=== PATIENT | female | born 1965 | race Caucasian/White ===

== ENCOUNTER 2021-12-09 08:28 | Emergency (ER) | payer BC, SELFPAY ==
--- NOTE | ~2021-12-09 | XR_ITS ---
EXAMINATION: XR WRIST, LEFT CLINICAL INFORMATION: Status post reduction. COMPARISON: Radiographs of the left wrist done earlier today. TECHNIQUE: PA, lateral, views of the left wrist. Total of 4 images were obtained. FINDINGS: Previously documented fractures involving the distal left radial metaphysis and the ulna are reidentified, shows significant improved alignment both on the frontal as well as on the lateral projection. Mild residual volar angulation persists on the lateral projection on the second post reduction images. XR/XR wrist LT 2V IMPRESSION: Significant improved alignment at the fracture sites of the left breast since the prior prereduction radiographs done earlier today at 8:56 AM.
--- NOTE | ~2021-12-09 | XR_ITS ---
EXAMINATION: XR WRIST, LEFT CLINICAL INFORMATION: History of fall and pain. COMPARISON: None TECHNIQUE: Two views of the left wrist. FINDINGS: Comminuted fractures are present at the distal metaphysis of the left radius and ulna with involvement of ulnar styloid process. Volar angulation of the distal fracture fragment is seen. Significant soft tissue swelling is present. No definite evidence of any fracture line extension to the articular surface. The remainder of the visualized bones are intact. XR/XR wrist LT 2V IMPRESSION: Comminuted transverse distal radial and ulnar fracture without any definite radiographic evidence of fracture line extension to the articular surface .
[2021-12-09 08:31] VITALS: BP 128/59; PULSE 76; RESP 20; TEMP 36.3; O2SAT 99; BMI 20.9
--- NOTE | 2021-12-09 08:46 | ED.EXTPRO ---
HPI - Extremity Problem General Chief complaint: Extremity Problem <KARLO Lin Last Filed: 12/09/21 11:17> Stated complaint: L wrist inj <KARLO Lin Last Filed: 12/09/21 11:17> Time Seen by Provider: 12/09/21 08:46 <KARLO Lin Last Filed: 12/09/21 11:17> Source: patient <KARLO Lin Last Filed: 12/09/21 11:17> Mode of arrival: ambulatory <KARLO Lin Last Filed: 12/09/21 11:17> Limitations: no limitations <KARLO Lin Last Filed: 12/09/21 11:17> History of Present Illness HPI Narrative: 56-year-old female who had an injury to her left wrist that occurred last night. Patient was taking her dogs out last night, and tripped, fell on her left arm. She is not sure exactly what happened. There was no head strike, no loss of consciousness. She iced it throughout the night, and took Tylenol and Advil. It is mildly painful at rest, and is 8/10 pain when she moves it. Patient already made an appointment with orthopedics on Saturday, her called an orthopedic surgeon that they know, Dr. Demar Alfredo. <KARLO Lin Last Filed: 12/09/21 11:17> Related Data Home medications: Previous Rx's Medication Instructions Recorded oxycodone 5 mg capsule 5 mg PO Q6H PRN 3 Days #12 cap 12/09/21 <KARLO Lin Last Filed: 12/09/21 11:17> Allergies/Adverse reactions: Allergies Allergy/AdvReac Type Severity Reaction Status Date / Time No Known Allergies Allergy Verified 12/09/21 08:33 <KARLO Lin Last Filed: 12/09/21 11:17> Review of Systems Constitutional: Constitutional: Denies body ache(s), Denies chills, Denies fatigue, Denies fever(s), Denies headache(s), Denies malaise and Denies weakness <KARLO Lin Last Filed: 12/09/21 11:17> Eyes: Eyes: Denies diplopia <KARLO Lin Last Filed: 12/09/21 11:17> ENT: Denies vertigo, Denies dizziness, Denies otalgia, Denies headache(s), Denies mouth pain, Denies post nasal drip, Denies sinus pain, Denies sinus pressure, Denies sore throat and Denies throat swelling <KARLO Lin Last Filed: 12/09/21 11:17> Cardiovascular: Cardiovascular: Denies chest pain, Denies syncope, Denies leg edema, Denies lightheadedness, Denies Loss of Consciousness, Denies palpitations and Denies dyspnea <KARLO Lin Last Filed: 12/09/21 11:17> Respiratory: Respiratory: Denies chest congestion, Denies cough and Denies dyspnea <KARLO Lin Last Filed: 12/09/21 11:17> Gastrointestinal: Gastrointestinal: Reports abdominal pain, Denies hematochezia, Denies constipation, Denies diarrhea and Denies vomiting <KARLO Lin Last Filed: 12/09/21 11:17> Musculoskeletal: Musculoskeletal: Reports deformity, Reports arthralgias, Reports joint swelling, Denies numbness, Reports radiating pain into limb and Denies tingling <KARLO Lin Last Filed: 12/09/21 11:17> Neurologic: Denies confusion, Denies vertigo, Denies dizziness, Denies syncope, Denies headache(s), Denies numbness, Denies tingling and Denies weakness <KARLO Lin Last Filed: 12/09/21 11:17> Psychiatric: Psychiatric: Denies anxiety, Denies confusion and Denies depression <KARLO Lin Last Filed: 12/09/21 11:17> Endocrine: Endocrine: Denies fatigue and Denies palpitations <KARLO Lin Last Filed: 12/09/21 11:17> Allergic/Immunologic: Allergic/Immunologic: Denies throat swelling <KARLO Lin Last Filed: 12/09/21 11:17> PMFSH Past Medical History Medical History: Medical History No known health problems <KARLO Lin - Last Filed: 12/09/21 11:17> Social History Social History: Social History Patient Tobacco Use Status: Tobacco use Unknown Use of substances other than those prescribed or required for medical reasons: No Advance Directives: No Advance Directives Information Provided: No <KARLO Lin - Last Filed: 12/09/21 11:17> Physical Exam Vital Signs: Vital Signs: Last Vital Signs Temp 97.4 F 12/09/21 08:31 Pulse 70 12/09/21 11:19 Resp 14 12/09/21 11:19 BP 112/66 12/09/21 11:19 Pulse Ox 98 12/09/21 11:19 Oxygen Flow Rate 2 12/09/21 11:03 BMI result Body Mass Index 20.9 <KARLO Lin - Last Filed: 12/09/21 11:17> Vital Signs: Last Vital Signs Temp 97.4 F 12/09/21 08:31 Pulse 70 12/09/21 11:19 Resp 14 12/09/21 11:19 BP 112/66 12/09/21 11:19 Pulse Ox 98 12/09/21 11:19 Oxygen Flow Rate 2 12/09/21 11:03 BMI result Body Mass Index 20.9 <Jayjay Lockett MD - Last Filed: 12/09/21 11:28> Const: General: No confusion <KARLO Lin - Last Filed: 12/09/21 11:17> Nutritional Appearance: well nourished <KARLO Lin - Last Filed: 12/09/21 11:17> Orientation/consciousness: No confusion <KARLO Lin - Last Filed: 12/09/21 11:17> Limitations: no limitations <KARLO Lin - Last Filed: 12/09/21 11:17> HEENT: Head: Yes normal to inspection, Yes normocephalic and Yes atraumatic <KARLO Lin - Last Filed: 12/09/21 11:17> Ears: hearing grossly normal bilaterally, external ears normal, TM's normal bilaterally and EAC's normal <KARLO Lin - Last Filed: 12/09/21 11:17> General nose exam: Normal external nose present <KARLO Lin - Last Filed: 12/09/21 11:17> Face and sinus: Yes normal facial exam and Yes sinuses nontender <Samantha Wood CT - Last Filed: 12/09/21 11:17> Mouth: Normal oral and palatal mucosa present <Samantha Wood [facility] Last Filed: 12/09/21 11:17> Throat: Yes posterior oropharynx normal <Samantha Wood CT - Last Filed: 12/09/21 11:17> Eyes: Conjunctivae: conjunctivae normal <Samantha Wood CT - Last Filed: 12/09/21 11:17> Pupils: Equal, round and reactive pupils present <Samantha Wood CT - Last Filed: 12/09/21 11:17> EOM: EOMs intact bilaterally <Samantha Wood CT - Last Filed: 12/09/21 11:17> Neck: Neck: Yes full ROM, Yes no lymphadenopathy and Yes supple <Samantha Wood CT - Last Filed: 12/09/21 11:17> Resp: Effort & Inspection: normal respiratory effort and able to speak in complete sentences <Samantha Wood CT - Last Filed: 12/09/21 11:17> Auscultation: clear to auscultation bilaterally, no crackles, no rales, no rhonchi and no wheezes <Samantha Wood [facility] Last Filed: 12/09/21 11:17> Cardio: Rate: regular rate <Samantha Wood [facility] Last Filed: 12/09/21 11:17> Rhythm: regular rhythm <Samantha Wood [facility] Last Filed: 12/09/21 11:17> Heart sounds: S1 normal heart sound present and S2 normal heart sound present <Samantha Wood [facility] Last Filed: 12/09/21 11:17> GI: Inspection: Yes normal to inspection <Samantha Wood [facility] Last Filed: 12/09/21 11:17> Palpation (GI): Soft to palpation, nontender, no guarding and not rigid <Samantha Wood [facility] Last Filed: 12/09/21 11:17> Percussion: Yes normal to percussion <Samantha Wood CT - Last Filed: 12/09/21 11:17> Auscultation: normal bowel sounds <KARLO Lin Last Filed: 12/09/21 11:17> Skin: Other: Swelling and bruising to dorsum of left forearm <KARLO Lin Last Filed: 12/09/21 11:17> Neuro: General: No confusion <Samantha Wood [facility] Last Filed: 12/09/21 11:17> Cranial nerves: Yes Equal, round and reactive pupils present <Samantha Wood [facility] Last Filed: 12/09/21 11:17> Extrem: Left upper extremity: wrist forearm distal Details: tenderness, swelling, abnormal ROM, deformity Details: dinner fork, normal vascular exam, radial pulse present and ulnar pulse present <KARLO Lin Last Filed: 12/09/21 11:17> Psych: Appearance: grossly normal <Samantha Wood [facility] Last Filed: 12/09/21 11:17> Affect: normal affect <Samantha Wood [facility] Last Filed: 12/09/21 11:17> Attitude: cooperative <Samantha Wood [facility] Last Filed: 12/09/21 11:17> Thought process: Normal thought process present <Samantha Wood [facility] Last Filed: 12/09/21 11:17> Course Course Course Narrative: 56-year-old female with left wrist injury. On exam, patient has intact sensation and pulses in her left wrist, range of motion is to painful. Patient has obvious deformity on the dorsal surface of her left distal forearm. Patient has dorsal angulation to left distal radius. Dr. Lockett is reduced patient's wrist with procedural sedation, x-ray shows dorsal angulation has resolved with postreduction x-ray. splinted her wrist with sugar tong fiberglass splint.. Will send her home with rest, sugar-tong splint, elevation, follow-up with her orthopedist. Will prescribe pain medication. Gave patient x-rays of pre and post reduction films so she can take them to her orthopedist on Saturday. FINDINGS: Comminuted fractures are present at the distal metaphysis of the left radius and ulna with involvement of ulnar styloid process. Volar angulation of the distal fracture fragment is seen. Significant soft tissue swelling is present. No definite evidence of any fracture line extension to the articular surface. The remainder of the visualized bones are intact.? XR/XR wrist LT 2V IMPRESSION: Comminuted transverse distal radial and ulnar fracture without any definite radiographic evidence of fracture line extension to the articular surface <KARLO Lin - Last Filed: 12/09/21 11:17> Procedures Orthopedic Fracture Reduction Fracture #1: Time Out Performed: Yes <Jayjay Lockett MD - Last Filed: 12/09/21 11:28> Side: left <Jayjay Lockett MD - Last Filed: 12/09/21 11:28> Fracture Reduction Location: other (left dital radius) <Jayjay Lockett MD - Last Filed: 12/09/21 11:28> Analgesia: procedural sedation <Jayjay Lockett MD - Last Filed: 12/09/21 11:28> Technique: direct manipulation and traction/counter-traction <Jayjay Lockett MD - Last Filed: 12/09/21 11:28> Post Reduction X-rays Demonstrate: acceptable reduction <Jayjay Lockett MD - Last Filed: 12/09/21 11:28> Post-reduction neuro exam: intact <Jayjay Lockett MD - Last Filed: 12/09/21 11:28> Post-reduction vascular exam: intact <Jayjay Lockett MD - Last Filed: 12/09/21 11:28> Splint Applied: Yes <Jayjay Lockett MD - Last Filed: 12/09/21 11:28> Patient Tolerated Procedure: well <Jayjay Lockett MD - Last Filed: 12/09/21 11:28> Additional Comments: pt has follow up Tomorrow with Ortho already <Jayjay Lockett MD - Last Filed: 12/09/21 11:28> Procedural Sedation Indication: fracture/dislocation reduction <Jayjay Lockett MD - Last Filed: 12/09/21 11:28> ASA Class: I <Jayjay Lockett MD - Last Filed: 12/09/21 11:28> Mallampati Class: I <Jayjay Lockett MD - Last Filed: 12/09/21 11:28> Preparation: packerhead machine operator applied, pulse oximeter, capnometry used, supplemental O2 applied, suction/airway equipment at bedside and IV secured <Jayjay Lockett MD - Last Filed: 12/09/21 11:28> Fentanyl: IV <Jayjay Lockett MD - Last Filed: 12/09/21 11:28> Fentanyl dose (mcg): 100 <Jayjay Lockett MD - Last Filed: 12/09/21 11:28> IV Propofol dose (mg): 100 <Jayjay Lockett MD - Last Filed: 12/09/21 11:28> Patient Tolerated Procedure: well <Jayjay Lockett MD - Last Filed: 12/09/21 11:28> Complications: none <Jayjay Lockett MD - Last Filed: 12/09/21 11:28> Interventions: oxygen applied <Jayjay Lockett MD - Last Filed: 12/09/21 11:28> Additional Comments: propofol seadation/fentanyl started at 10.43 AM ended 20 minutes later administrted by mo Dr Lockett <Jayjay Lockett MD - Last Filed: 12/09/21 11:28> Discharge Plan Discharge Clinical Impression: Fracture of wrist, closed <KARLO Lin - Last Filed: 12/09/21 11:17> Patient Disposition: Home, Self-Care <KARLO Lin - Last Filed: 12/09/21 11:17> Instructions: Wrist Fracture in Adults (ED), R.I.C.E. Treatment (ED) <KARLO Lin - Last Filed: 12/09/21 11:17> Additional Instructions: Please rest your left arm, use a sling, and elevate your left arm. Please take pain medication as needed. Please keep the appointment you have Saturday morning with your orthopedist. Please bring the disc with the x-rays to your orthopedic surgeon on Saturday so they can see the pre and post reduction films. Please return to emergency room for any new or concerning symptoms. <KARLO Lin - Last Filed: 12/09/21 11:17> Prescriptions: New oxycodone 5 mg capsule 5 mg PO Q6H PRN (Reason: pain) 3 Days Qty: 12 0RF <KARLO Lin - Last Filed: 12/09/21 11:17>
[2021-12-09] MEDS: oxyCODONE HCl Immed Release 5 MG TABLET 10 MG PO (09:28)
[2021-12-09] MEDS: Ondansetron ODT 4 MG TAB.RAPDIS TRANSLINGU (09:38)
[2021-12-09] MEDS: Lidocaine HCl 1 % MPF 5 ML VIAL 10 ML INFILTRATI (10:32)
[2021-12-09 10:43] VITALS: BP 132/85; PULSE 77; RESP 16; O2SAT 98
[2021-12-09] MEDS: propofoL 200 MG/20 ML VIAL 100 MG IVPUSH (10:43)
[2021-12-09 11:03] VITALS: BP 130/74; PULSE 71; RESP 12; O2SAT 98
[2021-12-09 11:19] VITALS: BP 112/66; PULSE 70; RESP 14; O2SAT 98
--- NOTE | 2021-12-09 11:21 | PC.NURSE ---
Pt s/p left wrist reduction. 1043 initial start of procedure, Propofol 40mg given by Dr Lockett, pt splinted however reduction xray showing more reduction needed. Splint removed and Propofol 60mg given by Dr Lockett at 1103 with reduction of left wrist again and +placement with xray confirmation. new splint applied by Dr Lockett and Jeff rodriguez. Pt with this RN for monitoring at this time, VSS. Pt sleepy but awakes to verbal stimuli and oriented
[2021-12-09] MEDS: fentaNYL citrate/PF 100 MCG/2 ML VIAL IVPUSH (11:31)
[2021-12-09 11:51] VITALS: BP 124/69; PULSE 75; RESP 16; O2SAT 95
== END 2021-12-09 12:37 | disposition home or self-care (01) ==
PROVIDERS: Emergency Provider Emergency Medicine; PCP Family Medicine
DX: S62.102A Fracture of unspecified carpal bone, left wrist, initial encounter for closed fracture (principal); M25.532 Pain in left wrist; W01.0XXA Fall on same level from slipping, tripping and stumbling without subsequent striking against object, initial encounter; Y93.K1 Activity, walking an animal; Y92.480 Sidewalk as the place of occurrence of the external cause; Y99.9 Unspecified external cause status; Z79.899 Other long term (current) drug therapy
CPT/HCPCS: 25605; 29125; 73100; 96374; 96375; 99152; 99285; J3010